=== PATIENT | female | born 1980 | race Caucasian/White ===

== ENCOUNTER 2016-12-05 14:57 | Outpatient (CLI) | payer MEDICAID ==
[2016-12-05 18:02] LABS: BILIRUBIN,URINE NEGATIVE (NEGATIVE)
== END 2016-12-05 14:58 | disposition home or self-care (01) ==
LOC: LAB.F 14:57
PROVIDERS: ATTEND Nurse Practitioner Family
DX: R35.0 Frequency of micturition (principal)
CPT/HCPCS: 81001; 87086

== ENCOUNTER 2018-03-27 16:54 | Emergency (ER) | payer MEDICAID ==
[2018-03-27] MEDS ORDERED: IPRATROPIUM/ALBUTEROL 3 ML NEB INH STA (17:22)
[2018-03-27] MEDS ORDERED: DEXAMETHASONE 10 MG/ML VIAL PO STA (17:22)
[2018-03-27] MEDS ORDERED: IBUPROFEN 800 MG TABLET PO STA (17:27)
[2018-03-27] MEDS ORDERED: ACETAMINOPHEN 325 MG TABLET PO STA (17:31)
--- NOTE | 2018-03-27 17:31 | ED Physician Documentation ---
History of Present Illness - Stated complaint Stated Complaint: SOA - Chief complaint Chief Complaint: Resp - History obtained from History obtained from: Patient - History of Present Illness Timing: How many weeks ago (6) Pain level max: 0 Pain level now: 0 Improved by: prednisone Worsened by: exertion - Additonal information Additional information: 38-year-old female presents to the emergency department stating that her asthma has been giving her difficulties for the past 6 weeks. Was placed on prednisone and did improve but is now out. She sees the mica patcher on Saturday. Has been using her nebulizer more than usual at home. Mild cough. no fever. 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 : None HEENT: None Psych: Depression, Post traumatic stress disorder Musculoskeletal: None Derm: None - Past Surgical History Past Surgical History: Yes HEENT: Tonsil/Adenoidectomy - Present Medications Home Medications: Ambulatory Orders Medication Instructions Recorded Confirmed Albuterol 2.5 mg INH DAILY 08/09/15 03/27/18 Alprazolam [Xanax] 1 mg PO DAILY 08/09/15 03/27/18 Ergocalciferol [Vitamin D2] 50,000 units PO DAILY 08/09/15 03/27/18 Selegiline [Emsam] 1 patch TOP DAILY 08/09/15 03/27/18 Ibuprofen [Motrin] 800 mg PO Q8H 08/22/15 03/27/18 Fluticasone 44 Mcg [Flovent] 1 puffs INH BID 03/27/18 03/27/18 Montelukast [Singulair] 10 mg PO QPM 03/27/18 03/27/18 predniSONE [Deltasone] 10 mg PO [id number] #42 tab 03/27/18 - Allergies Allergies/Adverse Reactions: Allergies Allergy/AdvReac Type Severity Reaction Status Date / Time No Known Drug Allergies Allergy Verified 03/27/18 17:00 - Social History Does the pt smoke?: No Smoking Status: Never smoker Does the pt drink ETOH?: No Does the pt have substance abuse?: No - Immunizations Immunizations are current?: Yes - POLST Patient has POLST: No PD ED PE NORMAL - Vitals Vital signs reviewed: Yes - General General: Alert and oriented X 3 - HEENT HEENT: Ears normal, Moist mucous membranes, Pharynx benign - Neck Neck: Supple, no meningeal sign - Cardiac Cardiac: RRR - Respiratory Respiratory: No respiratory distress, Other (diminished breath sounds B with diffuse wheezing) - Derm Derm: Warm and dry - Extremities Extremities: No edema, No calf tenderness / cord - Neuro Neuro: Alert and oriented X 3 Results - Vitals Vitals: Vital Signs - 24 hr 03/27/18 03/27/18 03/27/18 16:59 17:05 17:30 Temperature 37.1 C Heart Rate 113 H 100 101 H Respiratory 24 20 22 Rate Blood Pressure 113/80 114/88 H 122/83 H O2 Saturation 95 96 95 03/27/18 03/27/18 17:34 18:20 Temperature 36.4 C L Heart Rate 102 H 106 H Respiratory 22 20 Rate Blood Pressure 116/76 O2 Saturation 95 Oxygen O2 Source Room air PD MEDICAL DECISION MAKING - ED course Complexity details: re-evaluated patient, considered differential, d/w patient ED course: 38-year-old female with an asthma exacerbation. Feels much better after nebulizer treatment and steroids. Will place on steroids for home. No respiratory distress. No hypoxia. No evidence of pneumonia clinically. Patient counseled regarding signs and symptoms for which I believe and urgent re-evaluation would be necessary. Patient with good understanding of and agreement to plan and is comfortable going home at this time This document was made in part using voice recognition software. While efforts are made to proofread this document, sound alike and grammatical errors may occur. Departure - Departure Disposition: Home, Self Care Clinical Impression: Asthma exacerbation Qualifiers: Asthma severity: unspecified severity Asthma persistence: unspecified Qualified Code(s): J45.901 - Unspecified asthma with (acute) exacerbation Condition: Good Instructions: ED Reactive Airway Disease Follow-Up: Diogo Mittal MD [Primary Care Provider] - Within 1 week Prescriptions: predniSONE [Deltasone] 10 mg PO [id number] #42 tab Comments: Return if you worsen. Continue your inhaler and nebulizer at home. Follow-up with pulmonology on Saturday as scheduled. Discharge Date/Time: 03/27/18 18:22
[2018-03-27 18:22] VITALS: BP 116/76
== END 2018-03-27 18:22 | disposition home or self-care (01) ==
LOC: ED 16:54
DX: J45.901 Unspecified asthma with (acute) exacerbation (principal)
CPT/HCPCS: 94640; 94664; 99283; 99284; A9270

== ENCOUNTER 2018-09-06 07:50 | Emergency (ER) | payer MEDICAID ==
[2018-09-06] MEDS ORDERED: IPRATROPIUM/ALBUTEROL 3 ML NEB INH STA (08:32)
[2018-09-06] MEDS ORDERED: CHERRY SYRUP 10 ML UDC PO ONE (08:32)
[2018-09-06] MEDS ORDERED: DEXAMETHASONE 10 MG/ML VIAL PO STA (08:32)
[2018-09-06] MEDS ORDERED: LORazepam 1 MG TABLET PO STA (08:32)
--- NOTE | 2018-09-06 08:33 | ED Physician Documentation ---
PD HPI DYSPNEA - Stated complaint Stated Complaint: DIFFICULTY BREATHING - Chief complaint Chief Complaint: Resp - History obtained from History obtained from: Patient - History of Present Illness Timing - onset: How many weeks ago (1) Timing - onset during: Rest Timing - duration: Weeks (1) Timing - details: Gradual onset, Still present Inciting event(s): URI, Other (asthma) Improved by: Inhaler/neb Worsened by: Exertion Associated symptoms: Cough, Wheezing Similar symptoms before: Diagnosis (asthma) Recently seen: Not recently seen - Additional information Additional information: 38-year-old female with intermittent asthma has developed worsening asthma over the past week and she was unable to get a relief with her nebulizer this morning. 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 : None HEENT: None Psych: Depression, Post traumatic stress disorder Musculoskeletal: None Derm: None - Past Surgical History Past Surgical History: Yes HEENT: Tonsil/Adenoidectomy - Present Medications Home Medications: Ambulatory Orders Medication Instructions Recorded Confirmed Albuterol 2.5 mg INH DAILY 08/09/15 03/27/18 Alprazolam [Xanax] 1 mg PO DAILY 08/09/15 03/27/18 Ergocalciferol [Vitamin D2] 50,000 units PO DAILY 08/09/15 03/27/18 Selegiline [Emsam] 1 patch TOP DAILY 08/09/15 03/27/18 Ibuprofen [Motrin] 800 mg PO Q8H 08/22/15 03/27/18 Fluticasone 44 Mcg [Flovent] 1 puffs INH BID 03/27/18 03/27/18 Montelukast [Singulair] 10 mg PO QPM 03/27/18 03/27/18 predniSONE [Deltasone] 10 mg PO [id number] #42 tab 03/27/18 predniSONE [Deltasone] 10 mg PO ONCE #26 tablet 09/06/18 - Allergies Allergies/Adverse Reactions: Allergies Allergy/AdvReac Type Severity Reaction Status Date / Time No Known Drug Allergies Allergy Verified 09/06/18 08:03 - Social History Does the pt smoke?: No Smoking Status: Never smoker Does the pt drink ETOH?: No Does the pt have substance abuse?: No - Immunizations Immunizations are current?: Yes - POLST Patient has POLST: No PD ED PE NORMAL - Vitals Vital signs reviewed: Yes (resp rate is entered incorrectly should be 26) - General General: Alert and oriented X 3, Well developed/nourished, Other (tachypneic at rest) - HEENT HEENT: Atraumatic, PERRL, EOMI, Ears normal, Moist mucous membranes, Pharynx benign, Dentition benign - Neck Neck: Supple, no meningeal sign, No bony TTP - Cardiac Cardiac: RRR, No murmur - Respiratory Respiratory: Other (tachypneric with diminished breath sounds and wheezes to the right middle lung field. ) - Abdomen Abdomen: Soft, Non tender - Back Back: No CVA TTP, No spinal TTP - Derm Derm: Normal color, Warm and dry, No rash - Extremities Extremities: No deformity, No edema - Neuro Neuro: Alert and oriented X 3, reprographics technician 2-12 intact, No motor deficit, No sensory deficit, Normal speech Eye Opening: Spontaneous Motor: Obeys Commands Verbal: Oriented GCS Score: 15 - Psych Psych: Normal mood, Normal affect Results - Vitals Vitals: Vital Signs - 24 hr 09/06/18 09/06/18 09/06/18 07:58 08:36 08:54 Temperature 36.6 C Heart Rate 93 96 90 Respiratory 96 H 20 20 Rate Blood Pressure 104/79 123/87 H O2 Saturation 96 96 Oxygen O2 Source Room air - Rads (name of study) chest Radiology: Prelim report reviewed (Impression: 1. Pulmonary hyperinflation, possibly secondary to chronic reactive airways disease. No focal opacities identified.), EMP read indepedently, See rad report PD MEDICAL DECISION MAKING - ED course Complexity details: considered differential, d/w patient ED course: 38-year-old female with an acute exacerbation of her asthma is administered dexamethasone 10 mg orally and a DuoNeb treatment with marked improvement. She feels well at the time of discharge. She has had allergic asthma for the past 10 years and she has benefited from inhaled steroid. Departure - Departure Disposition: 01 Home, Self Care Clinical Impression: Asthma exacerbation Qualifiers: Asthma severity: mild Asthma persistence: intermittent Qualified Code(s): J45.21 - Mild intermittent asthma with (acute) exacerbation Condition: Stable Instructions: ED Reactive Airway Disease Follow-Up: Diogo Mittal MD [Primary Care Provider] - Prescriptions: predniSONE [Deltasone] 10 mg PO ONCE #26 tablet
[2018-09-06] MEDS ORDERED: ACETAMINOPHEN 325 MG TABLET PO STA (08:41)
[2018-09-06] MEDS ORDERED: LORazepam 0.5 MG TABLET PO STA (08:42)
--- NOTE | 2018-09-06 09:27 | XRAY Report ---
Reason: SOA Procedure Date: 09/06/2018 Accession Number: [id number] / [id number] Procedure: XR - Chest 2 View X-Ray CPT Code: 22203 FULL RESULT: EXAM: CHEST RADIOGRAPHY EXAM DATE: 09/06/2018 09:19 AM. CLINICAL HISTORY: Shortness of breath. History of asthma. COMPARISON: None. TECHNIQUE: 2 views. FINDINGS: Lungs/Pleura: The lungs appear mildly hyperinflated with flattening of the diaphragm and narrowing of the mediastinum. No focal opacities, effusions, edema or pneumothorax. Mediastinum: Heart and mediastinal contours are unremarkable. Other: A mild to moderate dextroscoliosis of the mid to upper thoracic spine present. IMPRESSION: 1. Pulmonary hyperinflation, possibly secondary to chronic reactive airways disease. 2. No focal opacities identified. RADIA
[2018-09-06 10:35] VITALS: BP 113/89
== END 2018-09-06 10:35 | disposition home or self-care (01) ==
LOC: ED 07:50
DX: J45.21 Mild intermittent asthma with (acute) exacerbation (principal)
CPT/HCPCS: 71046; 94640; 99283; 99284; A9270

== ENCOUNTER 2019-04-07 06:54 | Outpatient (CLI) | payer MEDICAID | END 2019-04-07 06:55 | disposition critical access hospital (66) | LOC: EMS 06:54 | PROVIDERS: ATTEND Surgery | DX: R52 Pain, unspecified (principal); R05 Cough | CPT/HCPCS: A0425; A0427 ==

== ENCOUNTER 2019-04-07 07:30 | Emergency (ER) | payer MEDICAID ==
--- NOTE | 2019-04-07 07:50 | ED Physician Documentation ---
PD HPI CHEST PAIN - Stated complaint Stated Complaint: ABD PX - Chief complaint Chief Complaint: General - History obtained from History obtained from: Patient, EMS - History of Present Illness Timing - onset: How many days ago (10) Timing - onset during: Rest Timing - duration: Days (10) Timing - details: Gradual onset, Still present Quality: Sharp, Pain Location: Left chest Radiation: Back Improved by: Rest, Other medication Worsened by: Exertion, Inspiration, Movement, Palpation, Position Associated symptoms: Shortness of air, Diaphoresis, Feeling faint / dizzy, Cough Similar symptoms before: Has not had sx before Recently seen: Clinic - Additional information Additional information: 39-year-old female with a history of intermittent asthma has developed pain in the left lateral rib cage that has been present for about 10 days she has been in to see her primary care doctor about this and has had a CT scan of her abdomen pelvis done. She has not had results from this. She states that she has had to lay on her right side and that anytime she has a cough this pain bothers her quite a bit. She is started on some prednisone about 4 days ago which is helped a lot with her asthma and her cough. This morning she had a cough and had sudden onset of severe left lower lateral chest wall pain that caused diaphoresis and near syncope. She called the ambulance she did get some relief in route with some fentanyl given intravenously. Review of Systems Constitutional: denies: Fever, Chills, Myalgias Ears: denies: Ear pain Nose: denies: Rhinorrhea / runny nose, Congestion Throat: denies: Sore throat Cardiac: reports: Chest pain / pressure. denies: Palpitations, Pedal edema, Calf pain Respiratory: reports: Cough. 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 : None HEENT: None Psych: Depression, Post traumatic stress disorder Musculoskeletal: None Derm: None - Past Surgical History Past Surgical History: Yes HEENT: Tonsil/Adenoidectomy - Present Medications Home Medications: Ambulatory Orders Medication Instructions Recorded Confirmed Albuterol 2.5 mg INH DAILY 08/09/15 03/27/18 Alprazolam [Xanax] 1 mg PO DAILY 08/09/15 03/27/18 Ergocalciferol [Vitamin D2] 50,000 units PO DAILY 08/09/15 03/27/18 Selegiline [Emsam] 1 patch TOP DAILY 08/09/15 03/27/18 Ibuprofen [Motrin] 800 mg PO Q8H 08/22/15 03/27/18 Fluticasone 44 Mcg [Flovent] 1 puffs INH BID 03/27/18 03/27/18 Montelukast [Singulair] 10 mg PO QPM 03/27/18 03/27/18 predniSONE [Deltasone] 10 mg PO [id number] #42 tab 03/27/18 predniSONE [Deltasone] 10 mg PO ONCE #26 tablet 09/06/18 Benzonatate [Tessalon Perle] 100 - 200 mg PO TID PRN #30 capsule 04/07/19 traMADol [Ultram] 50 - 100 mg PO Q6H PRN #20 tablet 04/07/19 - Allergies Allergies/Adverse Reactions: Allergies Allergy/AdvReac Type Severity Reaction Status Date / Time No Known Drug Allergies Allergy Verified 09/06/18 08:03 - Social History Does the pt smoke?: No Smoking Status: Never smoker Does the pt drink ETOH?: No Does the pt have substance abuse?: No - Immunizations Immunizations are current?: Yes - POLST Patient has POLST: No PD ED PE NORMAL - Vitals Vital signs reviewed: Yes (hypertensive mild ) - General General: Alert and oriented X 3, No acute distress, Well developed/nourished - HEENT HEENT: Atraumatic, PERRL, EOMI - Neck Neck: Supple, no meningeal sign, No bony TTP - Cardiac Cardiac: RRR, No murmur - Respiratory Respiratory: No respiratory distress, Clear bilaterally, Other (There is specific point tenderness to the rib cage on the left lower lateral rib. The tenderness is specific to a rib and not under the ribs or in the abdomen. ) - Abdomen Abdomen: Soft, Non tender, No organomegaly - Back Back: No CVA TTP, No spinal TTP - Derm Derm: Normal color, Warm and dry, No rash - Extremities Extremities: No deformity, No edema - Neuro Neuro: Alert and oriented X 3, director mission 2-12 intact, No motor deficit, No sensory deficit Eye Opening: Spontaneous Motor: Obeys Commands Verbal: Oriented GCS Score: 15 - Psych Psych: Normal mood, Normal affect Results - Vitals Vitals: Vital Signs - 24 hr 04/07/19 04/07/19 04/07/19 07:43 08:05 09:29 Temperature 36.8 C Heart Rate 69 71 76 Respiratory 18 18 18 Rate Blood Pressure 119/89 H 104/76 122/85 H O2 Saturation 97 97 100 Oxygen O2 Source Room air - Labs Labs: Laboratory Tests 04/07/19 04/07/19 04/07/19 07:55 07:57 07:57 WBC 15.7 H RBC 4.36 Hgb 13.4 Hct 41.3 MCV 94.7 MCH 30.7 MCHC 32.4 RDW 12.2 Plt Count 377 MPV 8.9 Neut # (Auto) 12.0 H Lymph # (Auto) 2.8 [place] # (Auto) 0.6 Eos # (Auto) 0.2 Baso # (Auto) 0.1 Absolute Nucleated RBC 0.00 Nucleated RBC % 0.0 Sodium 136 Potassium 4.1 Chloride 101 Carbon Dioxide 24 Anion Gap 11.0 BUN 18 Creatinine 0.8 Estimated GFR (MDRD) 79 L Glucose 122 H Calcium 8.8 Total Bilirubin 0.4 AST 15 ALT 18 Alkaline Phosphatase 27 L Total Protein 6.9 Albumin 3.7 Globulin 3.2 Albumin/Globulin Ratio 1.2 Lipase 27 Urine Color YELLOW Urine Clarity CLEAR Urine pH 6.0 Ur Specific [place] >=1.030 H Urine Protein NEGATIVE Urine Glucose (UA) NEGATIVE Urine Ketones NEGATIVE Urine Occult Blood SMALL H Urine Nitrite NEGATIVE Urine Bilirubin NEGATIVE Urine Urobilinogen 0.2 (NORMAL) Ur Leukocyte Esterase NEGATIVE Urine RBC 0-5 Urine WBC 0-3 Ur Squamous Epith Cells FEW Squamous Urine Bacteria Rare Urine Mucus Few Strands Ur Microscopic Review INDICATED Urine Culture Comments NOT INDICATED - Rads (name of study) CT chest w Radiology: Prelim report reviewed (Impression: 1. No focal consolidation, pleural effusion or suspicious pulmonary nodules or masses. Dextroscoliosis of the upper thoracic spine. No rib fractures or bony lesions.), EMP read indepedently, See rad report PD MEDICAL DECISION MAKING - ED course Complexity details: reviewed old records, reviewed results, re-evaluated patient, considered differential, d/w patient ED course: 39-year-old female with a history of severe asthma has developed lateral chest wall pain. We did obtain CT scan of the chest today due to the extreme nature of the patient's pain. The findings were reassuring and that there is no evidence of hemo-pneumothorax or rib fracture. There is evidence of severe asthma on the CT scan and this is suspected as a primary reason for the patient's chest wall pain. She has started on some prednisone this past week which is helped with her asthma. WE have given a single dose of decadron. We will provide some pain medication the patient states that she has had some luck with the use of tramadol previously. Departure - Departure Disposition: 01 Home, Self Care Clinical Impression: Chest wall pain Condition: Stable Instructions: ED Chest Pain Costochondritis, ED Strain Chest Wall Follow-Up: Diogo Mittal MD [Primary Care Provider] - Prescriptions: Benzonatate [Tessalon Perle] 100 - 200 mg PO TID PRN #30 capsule PRN Reason: Cough RX: traMADol [Ultram] 50 - 100 mg PO Q6H PRN #20 tablet PRN Reason: Pain
[2019-04-07] MEDS ORDERED: IOVERSOL 320 100 ML VIAL IVP ONE ×2 (07:53→10:49)
[2019-04-07 08:10] LABS: BASOPHILS # (AUTO) 0.1 10^3/uL (0.0-0.1); BASOPHILS % (AUTO) 0.6 %; EOSINOPHILS # (AUTO) 0.2 10^3/uL (0.0-0.7); HGB - HEMOGLOBIN 13.4 g/dL (12.0-16.0); LYMPHOCYTES # (AUTO) 2.8 10^3/uL (1.5-3.5); LYMPHOCYTES % (AUTO) 17.7 %; MEAN CORPUSCULAR HEMOGLOBIN 30.7 pg (27.0-31.0); MEAN CORPUSCULAR HGB CONC 32.4 g/dL (32.0-36.0); MEAN CORPUSCULAR VOLUME 94.7 fL (81.0-99.0); MEAN PLATELET VOLUME 8.9 fL (7.9-10.8); MONOCYTES # (AUTO) 0.6 10^3/uL (0.0-1.0); MONOCYTES % (AUTO) 3.6 %; NEUTROPHILS % (AUTO) 76.5 %; PLT - PLATELET COUNT 377 10^3/uL (130-450); RED BLOOD COUNT 4.36 10^6/uL (4.20-5.40); RED CELL DISTRIBUTION WIDTH 12.2 % (12.0-15.0); WHITE BLOOD COUNT 15.7 x10^3/uL (4.8-10.8)
[2019-04-07] MEDS ORDERED: KETOROLAC 30 MG/ML VIAL IVP STA (08:10)
[2019-04-07 08:13] LABS: BILIRUBIN,URINE NEGATIVE (NEGATIVE); GLUCOSE, URINE (UA) NEGATIVE (NEGATIVE); KETONES,URINE (UA) NEGATIVE (NEGATIVE); LEUKOCYTE ESTERASE, URINE NEGATIVE (NEGATIVE); NITRITE,URINE NEGATIVE (NEGATIVE); OCCULT BLOOD,URINE SMALL (NEGATIVE); PROTEIN,URINE NEGATIVE (NEGATIVE); UROBILINOGEN,URINE 0.2 (NORMAL) E.U./dL (NORMAL)
[2019-04-07 08:15] LABS: CLARITY,URINE CLEAR (CLEAR)
[2019-04-07 08:19] LABS: ALBUMIN 3.7 g/dL (3.2-5.5); ALBUMIN/GLOBULIN RATIO 1.2 (1.0-2.2); BILIRUBIN,TOTAL 0.4 mg/dL (0.2-1.0); CALCIUM 8.8 mg/dL (8.5-10.3); CREATININE 0.8 mg/dL (0.4-1.0); TOTAL PROTEIN 6.9 g/dL (6.7-8.2)
[2019-04-07 08:23] LABS: RBC,URINE 0-5 /HPF (0-5)
[2019-04-07 08:24] LABS: BACTERIA,URINE Rare /HPF (None Seen); MUCUS,URINE Few Strands; SQUAMOUS EPITHELIAL CELL,UR FEW Squamous (<= Few)
--- NOTE | 2019-04-07 09:06 | CT Report ---
Reason: chest pain Procedure Date: 04/07/2019 Accession Number: [id number] / [id number] Procedure: CT - CHEST W CPT Code: Final Report FULL RESULT: EXAM: CT CHEST EXAM DATE: 04/07/2019 08:44 AM. CLINICAL HISTORY: Chest pain. COMPARISONS: ABDOMEN KUB LD (ADULT) 04/03/2019 4:21 PM. TECHNIQUE: Routine helical CT imaging was performed through the chest. IV contrast: None. Reconstructions: Coronal and sagittal. In accordance with CT protocol optimization, one or more of the following dose reduction techniques were utilized for this exam: automated exposure control, adjustment of mA and/or KV based on patient size, or use of iterative reconstructive technique. FINDINGS: Lungs/Pleura: No nodules, bronchial thickening, consolidation, or edema. Pulmonary vasculature is normal. No pericardial or pleural effusion. No pneumothorax. Atelectatic changes versus scarring in the lung bases. Mediastinum: Normal. No adenopathy or masses. The heart and great vessels are normal. Bones: Dextroscoliosis of the upper thoracic spine. Visualized Abdomen: Again demonstrated is a 2.0 cm hypodense structure in the right adrenal gland consistent with a benign adrenal adenoma on the prior abdominal CT dated 04/03/2019. Other: None. IMPRESSION: 1. No focal consolidation, pleural effusion or suspicious pulmonary nodules or masses. 2. Dextroscoliosis of the upper thoracic spine. 3. No rib fractures or bony lesions. RADIA
[2019-04-07] MEDS ORDERED: DEXAMETHASONE 10 MG/ML VIAL IVP STA (09:47)
[2019-04-07] MEDS ORDERED: HYDROmorphone 1 MG/ML CARPUJECT IVP STA (09:58)
[2019-04-07] MEDS ORDERED: ONDANSETRON 4 MG/2 ML VIAL IVP STA (09:58)
[2019-04-07 10:11] VITALS: BP 117/79
== END 2019-04-07 10:21 | disposition home or self-care (01) ==
LOC: EDUNIT# → EDBD → ED 07:30
DX: R07.89 Other chest pain (principal); J45.909 Unspecified asthma, uncomplicated; M41.84 Other forms of scoliosis, thoracic region
CPT/HCPCS: 36415; 71260; 80053; 81001; 83690; 85025; 96374; 96375; 99284; 99285; J1170; Q9967; 81003; 87086

== ENCOUNTER 2019-05-26 20:11 | Outpatient (CLI) | payer MEDICAID | END 2019-05-26 20:12 | disposition critical access hospital (66) | LOC: EMS 20:11 | PROVIDERS: ATTEND Surgery | DX: R06.2 Wheezing (principal); R07.89 Other chest pain; R05 Cough | CPT/HCPCS: A0425; A0427; A0999 ==

== ENCOUNTER 2019-05-26 20:43 | Emergency (ER) | payer MEDICAID ==
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
[2019-05-26] MEDS ORDERED: LORazepam 2 MG/ML VIAL IVP STA (21:49)
[2019-05-26] MEDS ORDERED: traMADol 50 MG TABLET PO STA (21:57)
--- NOTE | 2019-05-26 22:30 | XRAY Report ---
Reason: sob, cough Procedure Date: 05/26/2019 Accession Number: [id number] / [id number] Procedure: XR - Chest 1 View X-Ray CPT Code: 84387 Final Report FULL RESULT: EXAM: CHEST RADIOGRAPHY EXAM DATE: 05/26/2019 10:17 PM. CLINICAL HISTORY: Shortness of breath, cough. COMPARISON: CHEST 2 VIEW 09/06/2018 9:[address] CHEST W/ 04/07/2019 8:40 AM. TECHNIQUE: 1 view. FINDINGS: Lungs/Pleura: No focal opacities evident. No pleural effusion. No pneumothorax. Mediastinum: Within exam limitations, the cardiomediastinal contour is normal. Other: Stable scoliosis of thoracic spine. IMPRESSION: No evidence of acute cardiopulmonary process. RADIA
[2019-05-27] MEDS ORDERED: oxyCODONE 5 MG TABLET PO STA (00:10)
[2019-05-27] MEDS ORDERED: ONDANSETRON ODT 4 MG TABLET TL STA (00:10)
[2019-05-27 00:36] VITALS: BP 117/77
== END 2019-05-27 00:35 | disposition home or self-care (01) ==
LOC: EDUNIT# → ED 20:43
DX: J45.901 Unspecified asthma with (acute) exacerbation (principal); R07.89 Other chest pain; F41.9 Anxiety disorder, unspecified
CPT/HCPCS: 71045; 96374; 99283; 99284; A9270; J2060; Q0162

== ENCOUNTER 2019-12-15 09:39 | Emergency (ER) | payer MEDICAID ==
--- NOTE | 2019-12-15 11:22 | XRAY Report ---
PROCEDURE: Chest 2 View X-Ray INDICATIONS: Shortness of breath TECHNIQUE: 2 view(s) of the chest. COMPARISON: None. FINDINGS: Surgical changes and devices: None. Lungs and pleura: No pleural effusions or pneumothorax. Lungs are clear. Mediastinum: Mediastinal contours are normal. Heart size is normal. Bones and chest wall: No suspicious bony abnormalities. Soft tissues appear unremarkable. IMPRESSION: No acute cardiopulmonary process demonstrated radiographically. Reviewed by: Bereket Shrestha MD on 12/15/2019 11:21 AM PDT Approved by: Bereket Shrestha MD on 12/15/2019 11:21 AM PDT Station ID: [id number]
[2019-12-15] MEDS ORDERED: SODIUM CHLORIDE 0.9% 1,000 ML IV STA (13:00)
--- NOTE | 2019-12-15 13:00 | ED Physician Documentation ---
PD HPI DYSPNEA - Stated complaint Stated Complaint: DIFFICULTY BREATHING - Chief complaint Chief Complaint: Resp - History obtained from History obtained from: Patient - History of Present Illness Timing - onset: How many weeks ago (1) Timing - onset during: Light activity Timing - duration: Weeks (1) Timing - details: Gradual onset, Still present, Still present in ED Improved by: Rest Worsened by: Exertion Associated symptoms: No: Fever, Cough, Hemoptysis, Wheezing, Chest pain / discomfort, Palpitations, Diaphoresis, Bilateral edema, Anxiety Similar symptoms before: Diagnosis (asthma) Recently seen: Not recently seen - Additional information Additional information: 39-year-old female with a history of asthma has developed some odd shortness of breath that she finds has been limiting her ability to do things. She finds that if she gets up to go to the bathroom she is lightheaded and dizzy and developed shortness of breath. She feels like she just wants to go back and lay down. She feels like she has to take a deep breath periodically to clear her head. She has not had these symptoms previously. She did use her inhaler thinking this might help but it did not help at all. She did not feel that her shortness of breath was similar to what she has had with her asthma. She has not been sick recently. Review of Systems Constitutional: denies: Fever Eyes: denies: Decreased vision Ears: denies: Ear pain Nose: denies: Congestion Throat: denies: Sore throat Cardiac: denies: Chest pain / pressure, Palpitations, Pedal edema, Calf pain Respiratory: reports: Dyspnea. 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 : None HEENT: None Psych: Depression, Post traumatic stress disorder Musculoskeletal: None Derm: None - Past Surgical History Past Surgical History: Yes HEENT: Tonsil/Adenoidectomy - Present Medications Home Medications: Ambulatory Orders Medication Instructions Recorded Confirmed Albuterol 2.5 mg INH DAILY 08/09/15 03/27/18 Alprazolam [Xanax] 1 mg PO DAILY 08/09/15 03/27/18 Ergocalciferol [Vitamin D2] 50,000 units PO DAILY 08/09/15 03/27/18 Selegiline [Emsam] 1 patch TOP DAILY 08/09/15 03/27/18 Ibuprofen [Motrin] 800 mg PO Q8H 08/22/15 03/27/18 Fluticasone 44 Mcg [Flovent] 1 puffs INH BID 03/27/18 03/27/18 Montelukast [Singulair] 10 mg PO QPM 03/27/18 03/27/18 predniSONE [Deltasone] 10 mg PO [id number] #42 tab 03/27/18 predniSONE [Deltasone] 10 mg PO ONCE #26 tablet 09/06/18 Benzonatate [Tessalon Perle] 100 - 200 mg PO TID PRN #30 capsule 04/07/19 traMADol [Ultram] 50 - 100 mg PO Q6H PRN #20 tablet 04/07/19 Ondansetron Odt [Zofran] 4 mg TL Q6H PRN #14 tablet 05/27/19 oxyCODONE/ACET 5/325 [Percocet 5 1 - 2 each PO Q6H PRN #14 tablet 05/27/19 mg/325 mg] - Allergies Allergies/Adverse Reactions: Allergies Allergy/AdvReac Type Severity Reaction Status Date / Time No Known Drug Allergies Allergy Verified 12/15/19 10:17 - Social History Does the pt smoke?: No Smoking Status: Never smoker Does the pt drink ETOH?: No Does the pt have substance abuse?: No - Immunizations Immunizations are current?: Yes - POLST Patient has POLST: No PD ED PE NORMAL - Vitals Vital signs reviewed: Yes (Normal) - General General: Alert and oriented X 3, No acute distress, Well developed/nourished - HEENT HEENT: Atraumatic, PERRL, EOMI, Ears normal, Moist mucous membranes, Pharynx benign, Dentition benign - Neck Neck: Supple, no meningeal sign, No bony TTP - Cardiac Cardiac: RRR, No murmur - Respiratory Respiratory: No respiratory distress, Clear bilaterally - Abdomen Abdomen: Normal bowel sounds, Soft, Non tender, Non distended, No organomegaly - Back Back: No CVA TTP, No spinal TTP - Derm Derm: Normal color, Warm and dry, No rash - Extremities Extremities: No deformity, No edema - Neuro Neuro: Alert and oriented X 3, 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 [employer] 2-12 intact, No motor deficit, No sensory deficit, Normal speech Eye Opening: Spontaneous Motor: Obeys Commands Verbal: Oriented GCS Score: 15 - Psych Psych: Normal mood, Normal affect Results - Vitals Vitals: Vital Signs - 24 hr 12/15/19 12/15/19 10:17 12:19 Temperature 37 C 37 C Heart Rate 73 73 Respiratory 20 20 Rate Blood Pressure 109/78 110/74 O2 Saturation 98 98 Oxygen O2 Source Room air - Labs Labs: Laboratory Tests 12/15/19 12/15/19 12/15/19 13:17 13:17 13:17 WBC 8.7 RBC 4.64 Hgb 14.6 Hct 43.4 MCV 93.5 MCH 31.5 H MCHC 33.6 RDW 11.8 L Plt Count 366 MPV 8.8 Neut # (Auto) 5.6 Lymph # (Auto) 2.3 Bucks # (Auto) 0.4 Eos # (Auto) 0.2 Baso # (Auto) 0.1 Absolute Nucleated RBC 0.00 Nucleated RBC % 0.0 D-Dimer 216.2 Sodium 136 Potassium 4.0 Chloride 100 L Carbon Dioxide 25 Anion Gap 11.0 BUN 16 Creatinine 0.7 Estimated GFR (MDRD) 92 Glucose 93 Calcium 9.6 Total Bilirubin 0.6 AST 17 ALT 24 Alkaline Phosphatase 37 L Troponin I High Sens Total Protein 7.8 Albumin 4.6 Globulin 3.2 Albumin/Globulin Ratio 1.4 Lipase 40 Urine Color Urine Clarity Urine pH Ur Specific Mcneal Urine Protein Urine Glucose (UA) Urine Ketones Urine Occult Blood Urine Nitrite Urine Bilirubin Urine Urobilinogen Ur Leukocyte Esterase Urine RBC Urine WBC Ur Squamous Epith Cells Urine Bacteria Ur Microscopic Review Urine Culture Comments 12/15/19 12/15/19 13:17 13:28 WBC RBC Hgb Hct MCV MCH MCHC RDW Plt Count MPV Neut # (Auto) Lymph # (Auto) Bucks # (Auto) Eos # (Auto) Baso # (Auto) Absolute Nucleated RBC Nucleated RBC % D-Dimer Sodium Potassium Chloride Carbon Dioxide Anion Gap BUN Creatinine Estimated GFR (MDRD) Glucose Calcium Total Bilirubin AST ALT Alkaline Phosphatase Troponin I High Sens < 2.3 L Total Protein Albumin Globulin Albumin/Globulin Ratio Lipase Urine Color YELLOW Urine Clarity CLEAR Urine pH 5.0 Ur Specific Mcneal 1.025 Urine Protein NEGATIVE Urine Glucose (UA) NEGATIVE Urine Ketones NEGATIVE Urine Occult Blood SMALL H Urine Nitrite NEGATIVE Urine Bilirubin NEGATIVE Urine Urobilinogen 0.2 (NORMAL) Ur Leukocyte Esterase TRACE H Urine RBC 0-5 Urine WBC 0-3 Ur Squamous Epith Cells MOD Squamous H Urine Bacteria None Seen Ur Microscopic Review INDICATED Urine Culture Comments NOT INDICATED - Rads (name of study) chest Radiology: Prelim report reviewed (Impression: No acute cardiopulmonary process demonstrated radiographically.), EMP read indepedently, See rad report Procedures - IVC sono (time) 1255 Bedside IVC sono: IVC measures (cm) (0.87), IVC collapsed c insp (cm) (complete), Dehydration (est 2 liter deficit) PD MEDICAL DECISION MAKING - ED course Complexity details: reviewed results, re-evaluated patient, considered differential, d/w patient ED course: 39-year-old female presents to the emergency department with some mild shortness of breath and she is found to be dehydrated on interrogation the inferior vena cava. The remainder of her blood work is otherwise unremarkable her electrocardiogram is unremarkable chest x-ray is unremarkable. She is administered intravenous saline.Her d-dimer and troponin are negative as well. Departure - Departure Disposition: 01 Home, Self Care Clinical Impression: Dehydration Condition: Stable Instructions: ED Dehydration Follow-Up: Diogo Mittal MD [Primary Care Provider] -
[2019-12-15 13:25] LABS: BASOPHILS # (AUTO) 0.1 10^3/uL (0.0-0.1); BASOPHILS % (AUTO) 0.8 %; EOSINOPHILS # (AUTO) 0.2 10^3/uL (0.0-0.7); EOSINOPHILS % (AUTO) 2.8 %; HGB - HEMOGLOBIN 14.6 g/dL (12.0-16.0); LYMPHOCYTES # (AUTO) 2.3 10^3/uL (1.5-3.5); LYMPHOCYTES % (AUTO) 26.1 %; MEAN CORPUSCULAR HEMOGLOBIN 31.5 pg (27.0-31.0); MEAN CORPUSCULAR HGB CONC 33.6 g/dL (32.0-36.0); MEAN CORPUSCULAR VOLUME 93.5 fL (81.0-99.0); MEAN PLATELET VOLUME 8.8 fL (7.9-10.8); MONOCYTES # (AUTO) 0.4 10^3/uL (0.0-1.0); MONOCYTES % (AUTO) 5.1 %; NEUTROPHILS # (AUTO) 5.6 10^3/uL (1.5-6.6); NEUTROPHILS % (AUTO) 64.7 %; PLT - PLATELET COUNT 366 10^3/uL (130-450); RED BLOOD COUNT 4.64 10^6/uL (4.20-5.40); RED CELL DISTRIBUTION WIDTH 11.8 % (12.0-15.0); WHITE BLOOD COUNT 8.7 x10^3/uL (4.8-10.8)
[2019-12-15 13:36] LABS: BILIRUBIN,URINE NEGATIVE (NEGATIVE); GLUCOSE, URINE (UA) NEGATIVE (NEGATIVE); KETONES,URINE (UA) NEGATIVE (NEGATIVE); LEUKOCYTE ESTERASE, URINE TRACE (NEGATIVE); NITRITE,URINE NEGATIVE (NEGATIVE); OCCULT BLOOD,URINE SMALL (NEGATIVE); PROTEIN,URINE NEGATIVE (NEGATIVE); UROBILINOGEN,URINE 0.2 (NORMAL) E.U./dL (NORMAL)
[2019-12-15 13:39] LABS: CLARITY,URINE CLEAR (CLEAR)
[2019-12-15 13:40] LABS: ALBUMIN 4.6 g/dL (3.2-5.5); ALBUMIN/GLOBULIN RATIO 1.4 (1.0-2.2); BILIRUBIN,TOTAL 0.6 mg/dL (0.2-1.0); CALCIUM 9.6 mg/dL (8.5-10.3); CREATININE 0.7 mg/dL (0.4-1.0); TOTAL PROTEIN 7.8 g/dL (6.7-8.2)
[2019-12-15 13:46] LABS: BACTERIA,URINE None Seen /HPF (None Seen); RBC,URINE 0-5 /HPF (0-5); SQUAMOUS EPITHELIAL CELL,UR MOD Squamous (<= Few)
[2019-12-15 14:14] VITALS: BP 112/72
== END 2019-12-15 14:14 | disposition home or self-care (01) ==
LOC: ED 09:39
DX: E86.0 Dehydration (principal)
CPT/HCPCS: 36415; 71046; 80053; 81001; 81003; 83690; 84484; 85025; 85379; 87086; 99284

== ENCOUNTER 2020-08-02 17:55 | Outpatient (CLI) | payer MEDICAID ==
[2020-08-02 20:05] LABS: ALBUMIN 4.6 g/dL (3.2-5.5); BILIRUBIN,DIRECT 0.1 mg/dL (0.1-0.5); BILIRUBIN,TOTAL 0.6 mg/dL (0.2-1.0); TOTAL PROTEIN 7.6 g/dL (6.7-8.2)
== END 2020-08-02 17:56 | disposition home or self-care (01) ==
LOC: LAB.S 17:55
PROVIDERS: ATTEND Internal Medicine
DX: R74.8 Abnormal levels of other serum enzymes (principal)
CPT/HCPCS: 36415; 80076; 83690

== ENCOUNTER 2022-07-10 13:42 | Outpatient (CLI) | payer MEDICAID | END 2022-07-10 23:59 | disposition critical access hospital (66) | LOC: EMS 13:42 | DX: J45.909 Unspecified asthma, uncomplicated (principal); F41.9 Anxiety disorder, unspecified | CPT/HCPCS: A0425; A0427; A0999 ==

== ENCOUNTER 2022-07-10 14:20 | Emergency (ER) | payer MEDICAID ==
[2022-07-10 14:28] VITALS: BP 122/83
--- OUTSIDE RECORDS SUMMARY | 2022-07-10 14:43 | EXTERNAL MEDICAL SUMMARY RPT | Continuity of Care Document ---
:1980 Author Organization [facility] Address [address] [place] [address] Phone Care Team Providers Name Role Phone Unavailable Unavailable Unavailable Caden Foster Md Unavailable Unavailable Tequila Little, Arben Unavailable Unavailable Osiel, Provider Unavailable Unavailable Brad George, Tailynrod Unavailable Unavailable Allergies No information. Encounters No information. Functional Status No information. Immunizations No information. Medications date description facility 2022-05-18 00:00 tramadol [facility] 2022-05-18 00:00 tramadol [facility] 2022-05-21 00:00 tramadol [facility] 2022-05-23 00:00 tramadol [facility] 2022-07-10 00:00 tramadol [facility] 2022-07-10 00:00 fluticasone furoate-vilanterol [facility] 2022-05-18 00:00 diazepam [facility] 2022-05-18 00:00 diazepam [facility] 2022-05-21 00:00 diazepam [facility] 2022-05-23 00:00 diazepam [facility] 2022-07-10 00:00 diazepam [facility] 2022-05-18 00:00 selegiline [facility] 2022-05-18 00:00 selegiline [facility] 2022-05-21 00:00 selegiline [facility] 2022-05-23 00:00 selegiline [facility] 2022-07-10 00:00 selegiline [facility] 2022-07-10 00:00 ALBUTEROL SULFATE AERS [facility] 2022-05-18 00:00 fluticasone furoate-vilanterol [facility] 2022-05-18 00:00 fluticasone furoate-vilanterol [facility] 2022-05-21 00:00 fluticasone furoate-vilanterol [facility] 2022-05-23 00:00 fluticasone furoate-vilanterol [facility] 2022-07-10 00:00 fluticasone furoate-vilanterol [facility] 2022-07-10 00:00 fluticasone furoate-vilanterol [facility] 2022-05-18 00:00 diazepam [facility] 2022-05-18 00:00 diazepam [facility] 2022-05-21 00:00 diazepam [facility] 2022-05-23 00:00 diazepam [facility] 2022-07-10 00:00 diazepam [facility] 2022-05-18 00:00 fluticasone furoate-vilanterol [facility] 2022-05-18 00:00 fluticasone furoate-vilanterol [facility] 2022-05-21 00:00 fluticasone furoate-vilanterol [facility] 2022-05-23 00:00 fluticasone furoate-vilanterol [facility] 2022-07-10 00:00 fluticasone furoate-vilanterol [facility] 2022-07-10 00:00 fluticasone furoate-vilanterol [facility] 2022-07-10 00:00 DEXAMETHASONE SODIUM PHOSPHATE [facility] 2022-05-18 00:00 tramadol [facility] 2022-05-18 00:00 tramadol [facility] 2022-05-21 00:00 tramadol [facility] 2022-05-23 00:00 tramadol [facility] 2022-07-10 00:00 tramadol [facility] 2022-05-18 00:00 fluticasone furoate-vilanterol [facility] 2022-05-18 00:00 fluticasone furoate-vilanterol [facility] 2022-05-21 00:00 fluticasone furoate-vilanterol [facility] 2022-05-23 00:00 fluticasone furoate-vilanterol [facility] 2022-07-10 00:00 fluticasone furoate-vilanterol [facility] 2022-05-18 00:00 selegiline [facility] 2022-05-18 00:00 selegiline [facility] 2022-05-21 00:00 selegiline [facility] 2022-05-23 00:00 selegiline [facility] 2022-07-10 00:00 selegiline [facility] 2022-05-18 00:00 diazepam [facility] 2022-05-18 00:00 diazepam [facility] 2022-05-21 00:00 diazepam [facility] 2022-05-23 00:00 diazepam [facility] 2022-07-10 00:00 diazepam [facility] 2022-05-18 00:00 selegiline [facility] 2022-05-18 00:00 selegiline [facility] 2022-05-21 00:00 selegiline [facility] C [facility] 2022-05-23 00:00 selegiline [facility] 2022-07-10 00:00 selegiline [facility] 2022-05-18 00:00 diazepam [facility] 2022-05-18 00:00 diazepam [facility] 2022-05-21 00:00 diazepam [facility] 2022-05-23 00:00 diazepam [facility] 2022-07-10 00:00 diazepam [facility] 2022-05-18 00:00 tramadol [facility] 2022-05-18 00:00 tramadol [facility] 2022-05-21 00:00 tramadol [facility] 2022-05-23 00:00 tramadol [facility] 2022-07-10 00:00 tramadol [facility] r[facility] 2022-05-18 00:00 fluticasone furoate-vilanterol [facility] 2022-05-18 00:00 fluticasone furoate-vilanterol [facility] 2022-05-21 00:00 fluticasone furoate-vilanterol [facility] rk 2022-05-23 00:00 fluticasone furoate-vilanterol [facility] 2022-07-10 00:00 fluticasone furoate-vilanterol [facility] 2022-05-18 00:00 tramadol [facility] 2022-05-18 00:00 tramadol [facility] r[facility] 2022-05-21 00:00 tramadol [facility] 2022-05-23 00:00 tramadol [facility] 2022-07-10 00:00 tramadol [facility] 2022-05-18 00:00 selegiline [facility] 2022-05-18 00:00 selegiline [facility] r[facility] 2022-05-21 00:00 selegiline [facility] r[facility] 2022-05-23 00:00 selegiline [facility] 2022-07-10 00:00 selegiline [facility] r[facility] date description facility 2022-05-18 00:00 Laceration of left thumb [facility] 2022-05-18 00:00 Laceration of left thumb [facility] 2022-05-18 00:00 Laceration of left thumb [facility] C [facility] 2022-05-18 00:00 Laceration of left thumb [facility] C [facility] 2022-05-18 00:00 Laceration without foreign body of [facility] & left thumb without damage to nail, [facility] initial encounter 2022-05-18 00:00 Laceration without foreign body of [facility] & left thumb without damage to nail, [facility] initial encounter 2022-05-18 00:00 Laceration without foreign body of [facility] & left thumb without damage to nail, [facility] initial encounter 2022-05-18 00:00 Laceration without foreign body of [facility] & left thumb without damage to nail, [facility] initial encounter 2022-07-10 00:00 Acute asthma [facility] newmanrk 2022-07-10 00:00 Asthma, unspecified with (acute) [facility] exacerbation [facility] rk 2022-07-10 00:00 Unspecified asthma with (acute) [facility] exacerbation [facility] beckman Procedures date description facility 2022-05-18 00:00 Visit Code Hold [facility] 2022-05-18 00:00 Visit Code Hold [facility] 2022-05-18 00:00 Visit Code Hold [facility] 2022-05-18 00:00 Visit Code Hold [facility] 2022-07-10 00:00 Visit Code Hold [facility] Results/Labs No information. Social History date description facility 2022-05-18 00:00 Never smoker [facility] 2022-05-18 00:00 Never smoker [facility] 2022-05-18 00:00 Never smoker [facility] 2022-05-18 00:00 Never smoker [facility] 2022-07-10 00:00 Never smoker [facility] Vital Signs date measurement value units 2022-05-18 00:00 BMI 29.76 kg/m2 2022-05-18 00:00 BP_diastolic 90 mmHg 2022-05-18 00:00 BP_systolic 131 mmHg 2022-05-18 00:00 heart_rate 89 /min 2022-05-18 00:00 height_metric 172.72 cm 2022-05-18 00:00 height_standard 68 in 2022-05-18 00:00 respiration_rate 16 /min 2022-05-18 00:00 temperature_metric 36.61 C 2022-05-18 00:00 temperature_standard 97.9 F 2022-05-18 00:00 weight_metric 88.45 kg 2022-05-18 00:00 weight_standard 195 lb 2022-07-10 00:00 BMI 29.76 kg/m2 2022-07-10 00:00 BP_diastolic 88 mmHg 2022-07-10 00:00 BP_systolic 128 mmHg 2022-07-10 00:00 heart_rate 80 /min 2022-07-10 00:00 height_metric 172.72 cm 2022-07-10 00:00 height_standard 68 in 2022-07-10 00:00 respiration_rate 21 /min 2022-07-10 00:00 temperature_metric 36.56 C 2022-07-10 00:00 temperature_standard 97.8 F 2022-07-10 00:00 weight_metric 88.45 kg 2022-07-10 00:00 weight_standard 195 lb
--- NOTE | 2022-07-10 14:49 | ED Physician Documentation ---
History of Present Illness - Stated complaint Stated Complaint: UZAIR DOMÍNGUEZ - Chief complaint Chief Complaint: Resp - Additonal information Additional information: 42-year-old female presents emergency department via EMS for evaluation of shortness of air. She has longstanding history of asthma for which she takes a daily Breo. She states that for the last several years she has not been having exacerbations but she began having 1 about 3 days ago. She used albuterol and DuoNeb to no relief. She did go to a local walk-in clinic where they tried albuterol nebulizer which was not successful. They gave her an oral dose of steroids and called EMS. She was never hypoxic. EMS administered a DuoNeb in route as well as gave her 125 mg Solu-Medrol IV. In route she began to feel fully resolved of her symptoms and requested they return her to the walk-in clinic though they came still to the ER. I presentation she is alert well-appearing. There is no respiratory distress or tachypnea noted room air saturations are 100%. She is requesting discharge home Review of Systems Constitutional: denies: Fever Throat: reports: Reviewed and negative Cardiac: reports: Reviewed and negative Respiratory: reports: Dyspnea, Cough. 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 : None HEENT: None Psych: Depression, Post traumatic stress disorder Musculoskeletal: None Derm: None - Past Surgical History Past Surgical History: Yes HEENT: Tonsil/Adenoidectomy - Present Medications Home Medications: Ambulatory Orders Medication Instructions Recorded Confirmed Albuterol 2.5 mg INH DAILY 08/09/15 03/27/18 Alprazolam [Xanax] 1 mg PO DAILY 08/09/15 03/27/18 Ergocalciferol [Vitamin D2] 50,000 units PO DAILY 08/09/15 03/27/18 Selegiline [Emsam] 1 patch TOP DAILY 08/09/15 03/27/18 Ibuprofen [Motrin] 800 mg PO Q8H 08/22/15 03/27/18 Fluticasone 44 Mcg [Flovent] 1 puffs INH BID 03/27/18 03/27/18 Montelukast [Singulair] 10 mg PO QPM 03/27/18 03/27/18 predniSONE [Deltasone] 10 mg PO [id number] #42 tab 03/27/18 predniSONE [Deltasone] 10 mg PO ONCE #26 tablet 09/06/18 Benzonatate [Tessalon Perle] 100 - 200 mg PO TID PRN #30 capsule 04/07/19 traMADol [Ultram] 50 - 100 mg PO Q6H PRN #20 tablet 04/07/19 Ondansetron Odt [Zofran] 4 mg TL Q6H PRN #14 tablet 05/27/19 oxyCODONE/ACET 5/325 [Percocet 5 1 - 2 each PO Q6H PRN #14 tablet 05/27/19 mg/325 mg] predniSONE [Deltasone] 40 mg PO DAILY 4 Days #8 tablet 07/10/22 - Allergies Allergies/Adverse Reactions: Allergies Allergy/AdvReac Type Severity Reaction Status Date / Time No Known Drug Allergies Allergy Verified 07/10/22 14:28 - Social History Does the pt smoke?: No Smoking Status: Never smoker Does the pt drink ETOH?: No Does the pt have substance abuse?: Yes Substance Use and Type: Marijuana, CBD oil / Products - Immunizations Immunizations are current?: Yes - POLST Patient has POLST: No PD ED PE NORMAL - General General: Alert and oriented X 3, No acute distress - HEENT HEENT: PERRL - Cardiac Cardiac: RRR, No murmur - Respiratory Respiratory: No respiratory distress, Clear bilaterally (Unremarkable cardiopulmonary auscultation without wheeze or crackles. room air sats 100%) Results - Vitals Vitals: Vital Signs - 24 hr 07/10/22 14:21 Temperature 37.3 C Respiratory 18 Rate Blood Pressure 122/83 H O2 Saturation 99 Oxygen O2 Source Room air PD Medical Decision Making - ED course Complexity details: reviewed results, re-evaluated patient, d/w patient ED course: 42 -year-old female presents to the emergency department via EMS for shortness of air. Began having an asthma exacerbation about 3 days ago that was unresponsive to albuterol and DuoNeb. At the local walk-in clinic she received a dose of oral steroids but was not feeling better and EMS was summoned. She was given 125 mg of Solu-Medrol and DuoNeb in route with good resolution of symptoms. On presentation here she is alert well-appearing. Room air saturations 100%. Cardiopulmonary auscultation was unremarkable. Patient is requesting discharge home. She declined a chest x-ray which given the unremarkable cardiopulmonary auscultation lack of fevers or hypoxia is reasonable. I am not suspicious for an occult pneumonia. I will discharge her with an additional 4 days of prednisone sent to the patient's preferred pharmacy. The usual emergent return precautions otherwise discussed Departure - Departure Disposition: Home, Self Care Clinical Impression: Asthma with acute exacerbation Qualifiers: Asthma severity: moderate Asthma persistence: unspecified Qualified Code(s): J45.901 - Unspecified asthma with (acute) exacerbation Condition: Stable Record reviewed to determine appropriate education?: Yes Prescriptions: predniSONE [Deltasone] 40 mg PO DAILY 4 Days #8 tablet Comments: Xochitl you felt like you had been having an asthma exacerbation over the last few days. Your nebulizers at home were not working but you began to feel better after you received the steroids. I have sent a prescription for prednisone to the [facility] in [place]. Fill it tomorrow and continue to take for the next 4 days. Some of the asthma exacerbation may be due to local pollens I do encourage you to take an antihistamine or allergy medicine at home. Return to the ER if you find that you are having worsening symptoms.
== END 2022-07-10 15:00 | disposition home or self-care (01) ==
LOC: ED 14:20
DX: J45.901 Unspecified asthma with (acute) exacerbation (principal)
CPT/HCPCS: 99283; 99284

== ENCOUNTER 2023-08-03 14:43 | Outpatient (CLI) | payer MEDICAID | END 2023-08-03 23:59 | disposition critical access hospital (66) | LOC: EMS 14:43 | PROVIDERS: ATTEND Emergency Medicine | DX: R06.02 Shortness of breath (principal); R06.2 Wheezing; R07.89 Other chest pain; R53.1 Weakness; R00.0 Tachycardia, unspecified | CPT/HCPCS: A0425; A0427; A0999 ==